=== PATIENT | female | born 1950 | race Caucasian/White ===

== ENCOUNTER 2018-05-09 12:54 | Emergency (ER) | payer MEDICARE, OTHER ==
[2018-05-09 13:37] VITALS: BP 103/66
== END 2018-05-09 15:41 | disposition home or self-care (01) ==
LOC: ER 12:59
DX: M54.5 Low back pain (principal); M47.896 Other spondylosis, lumbar region; G89.29 Other chronic pain; F17.210 Nicotine dependence, cigarettes, uncomplicated; Z88.1 Allergy status to other antibiotic agents
CPT/HCPCS: 72100